=== PATIENT | male | born 1975 ===

== ENCOUNTER 2022-03-13 09:00 | Inpatient (IN) | payer OTHER ==
[~2022-03-13] VITALS: Ht 167.6 cm; Wt 105.7 kg
[2022-03-17] MEDS ORDERED: METRONIDAZOLE500 MG PO (11:45)
[2022-03-17] MEDS ORDERED: INTESTINEX680 M1 PO (11:48)
[2022-04-11] MEDS ORDERED: OXYCODONE HCL5 MG PO (12:04)
== END 2022-04-11 14:18 | disposition home or self-care (01) | DRG 330 ==
LOC: SURH 03-17 09:00 → SURG 04-07 06:15 → O/R 04-07 06:15 → SURH 04-07 09:00 → SURG 04-07 13:22
PROVIDERS: ADMIT Surgery; ATTEND Surgery
PROC: 0DBP4ZZ Excision of Rectum, Percutaneous Endoscopic Approach (ICD-10-PCS; 2022-04-07)
PROC: 0DTN4ZZ Resection of Sigmoid Colon, Percutaneous Endoscopic Approach (ICD-10-PCS; principal; 2022-04-07 11:45)
DX: K57.20 Diverticulitis of large intestine with perforation and abscess without bleeding (principal); N32.1 Vesicointestinal fistula; K63.5 Polyp of colon; R10.32 Left lower quadrant pain; Z20.822 Contact with and (suspected) exposure to COVID-19

== ENCOUNTER 2022-03-16 13:41 | Inpatient (IN) | payer OTHER ==
[~2022-03-16] VITALS: Ht 167.6 cm; Wt 104.3 kg
--- NOTE | 2022-03-16 14:58 | NUR ---
PT EVALUADO POR QUIEN [place] MED. SE EDUCA A PT SOBRE EL MISMO Y REFIERE ENTENDER. SE EJECUTAN ORDENES BAJO MEDIDAS ACEPTICAS. PT EN ANGELA PEND A RESULTADOS DE LAB.
--- NOTE | 2022-03-16 15:37 | NUR ---
SE REQUIZA UNIDAD DE LEYLA ORDENADA POR DR. VUONG 2 UNIDADES COMPLETAS IN [facility], SE REALIZA. 3:20PM SE REALIZA LLAMDA A BANCO DE LEYLA Y SE LOGRA CONTACTO CON SR. [place] CUAL NOTIFICA PACIENTE NO TIENE RECOR PREVIO. 3:35PM SE ENTREGA EN BANCO DE LEYLA HOJA DE REQUSION DE 2 UNIDADES EN [facility] Y HOJA DE TIPO Y BRIAN. SE ENTREGA A TONIE. KNUTSON QUIEN HACE EL COTEJO Y NOTIFICA TODO ESTA CORRECTO. AL MOMENTO PACIENTE EN ESPERA DE POSIBLE ADMICION PARA ZAHRA .
[2022-03-17] MEDS ORDERED: METRONIDAZOLE500 MG PO (11:45)
[2022-03-17] MEDS ORDERED: INTESTINEX680 M1 PO (11:48)
== END 2022-03-17 12:40 | disposition home or self-care (01) | DRG 391 ==
LOC: ER 13:41 → SEC-K 18:43 → MEDJ 18:43
PROVIDERS: ADMIT Surgery; ATTEND Surgery
PROC: 8E0ZXY6 Isolation (ICD-10-PCS; principal; 2022-03-16)
DX: K57.32 Diverticulitis of large intestine without perforation or abscess without bleeding (principal); U07.1 COVID-19; N32.1 Vesicointestinal fistula